=== PATIENT | male | born 1960 | race Caucasian/White ===

== ENCOUNTER 2020-11-15 05:54 | Day surgery (SDC) | payer OTHER ==
[~2020-11-15] VITALS: Ht 188 cm; Wt 108.0 kg
[~2020-11-15 05:54] MED LIST: AMLO5 PO; ELIQUIS5 MG PO; HYDACE10B PO; METO100ER PO; RXOXYACE PO; SUBOXONE 8 MG-1 EACH SL
[2020-11-15] MEDS ORDERED: ATOR40TA PO (06:41)
--- NOTE | 2020-11-15 08:10 | NUR ---
PT TOLERATES CARDIOVERSION WELL. VSS. NADN. PT IV DC'D. CATH INTACT. PRESSURE DSG APPLIED. PT AND S/O VERBALIZES UNDERSTANDING WRITTEN AND VERBAL ORDERS. PT DC TOHOME VIA S/O BY ROSEANN.
== END 2020-11-15 22:42 | disposition home or self-care (01) ==
LOC: MHTC 05:54
DX: I48.0 Paroxysmal atrial fibrillation (principal)
CPT/HCPCS: 92960; 93005; 93010; 99152; J2250; J3010; J7030

== ENCOUNTER → 2024-08-17 | Outpatient (CLI) | payer MEDICARE ==
[~2024-08-17] MED LIST changes: +ATOR40TA PO
[2024-08-17 19:21] LABS: U Amphetamine Screen Not Detected; U Barbituate Screen Not Detected; U Benzodiazapine Screen Not Detected; U Buprenorphine Screen DETECTED; U Cannabinoids Screen Not Detected; U Cocaine Screen Not Detected; U Methadone Screen Not Detected; U Methamphetamine Screen Not Detected; U Opiates Screen Not Detected; U Phencyclidine Screen Not Detected
[2024-08-17 19:22] LABS: U Oxycodone Screen Not Detected
== END | disposition home or self-care (01) ==
LOC: LAB 12:06 → LAB SHORT 12:06 → EDSTATUS 15:09
PROVIDERS: Nurse Practitioner Family
DX: F11.20 Opioid dependence, uncomplicated (principal); Z79.891 Long term (current) use of opiate analgesic

== ENCOUNTER → 2024-10-13 | Outpatient (CLI) | payer MEDICARE ==
[2024-10-13 19:05] LABS: U Amphetamine Screen Not Detected; U Barbituate Screen Not Detected; U Benzodiazapine Screen Not Detected; U Buprenorphine Screen DETECTED; U Cannabinoids Screen Not Detected; U Cocaine Screen Not Detected; U Methadone Screen Not Detected; U Methamphetamine Screen Not Detected; U Opiates Screen Not Detected; U Oxycodone Screen Not Detected; U Phencyclidine Screen Not Detected
== END ==
LOC: LAB SHORT 15:03 → LAB 15:03
PROVIDERS: Nurse Practitioner Family
DX: F11.20 Opioid dependence, uncomplicated (principal)

== ENCOUNTER → 2024-12-19 | Outpatient (CLI) | payer MEDICARE | LOC: LAB 07:30 → LAB SHORT 07:30 | DX: B35.1 Tinea unguium (principal); L60.2 Onychogryphosis | CPT/HCPCS: 88305; 88312 ==

== ENCOUNTER → 2025-01-03 | Outpatient (CLI) | payer MEDICARE ==
[2025-01-03 19:06] LABS: U Amphetamine Screen Not Detected; U Barbituate Screen Not Detected; U Benzodiazapine Screen Not Detected; U Buprenorphine Screen DETECTED; U Cannabinoids Screen Not Detected; U Cocaine Screen Not Detected; U Methadone Screen Not Detected; U Methamphetamine Screen Not Detected; U Opiates Screen Not Detected; U Oxycodone Screen Not Detected; U Phencyclidine Screen Not Detected
== END | disposition home or self-care (01) ==
LOC: LAB 13:00 → LAB SHORT 13:00
PROVIDERS: Nurse Practitioner Family
DX: F11.20 Opioid dependence, uncomplicated (principal)